=== PATIENT | male | born 1950 | race African-American/Black ===

== ENCOUNTER 2018-09-02 00:33 | Emergency (ER) | payer OTHER ==
--- NOTE | 2018-09-02 01:02 | PDOC ---
History of Present Illness - General Stated Complaint: BLEEDING FROM PENIS Time Seen by Provider: 09/02/18 00:47 History Source: Patient, Old Records Exam Limitations: No Limitations - History of Present Illness Initial Comments: 09/02/18 01:01 HISTORY OF PRESENT ILLNESS: This is a 67-year-old man past medical history of HCV, alcohol abuse, cirrhosis, BPH status post unknown urologic procedure who BIBEMS for urinary retention and penile bleeding. Patient states that he had his postprocedure catheter removed on Tuesday is been experiencing hematuria with clots since that time. Patient states earlier today he had urinary urgency but was unable to micturate. Patient states she would have to sit down to void and only passed small amount of bloody urine. Patient began to express suprapubic pressure and activated EMS for evaluation. Upon arrival in the emergency department patient had a large void. Currently patient denies all complaints. No recent travel or sick contacts. PAST MEDICAL HISTORY: see HPI SURGICAL HISTORY: see HPI ALLERGIES: No known drug allergies REVIEW OF SYSTEMS General/Constitutional: Denies fever or chills. Denies weakness, weight change. HEENT: Denies change in vision. Denies ear pain or discharge. Denies sore throat. Cardiovascular: Denies chest pain or shortness of breath. Respiratory: Denies cough, wheezing, or hemoptysis. Gastrointestinal: Denies nausea, vomiting, diarrhea or constipation. Denies rectal bleeding. Genitourinary: see hpi Musculoskeletal: Denies joint or muscle swelling or pain. Denies neck or back pain. Skin and breasts: Denies rash or easy bruising. Neurologic: Denies headache, vertigo, loss of consciousness, or loss of sensation. Psychiatric: Denies depression or anxiety. Endocrine: Denies increased thirst. Denies abnormal weight change. Hematologic/Lymphatic: Denies anemia, easy bleeding, or history of blood clots. Allergic/Immunologic: Denies hives or skin allergy. Denies latex allergy. PHYSICAL EXAM General Appearance: Well-appearing, appropriately dressed. No apparent distress , no intoxication. HEENT: EOMI, PERRLA, normal ENT inspection, normal voice, TMs normal, pharynx normal. No conjunctival pallor. No photophobia, scleral icterus. Neck: Supple. Trachea midline. No tenderness, rigidity, carotid bruit, stridor , lymphadenopathy, or thyromegaly. Respiratory/Chest: Lungs CTAB. No shortness of breath, chest tenderness, respiratory distress, accessory muscle use. No crackles, rales, rhonchi, stridor , wheezing, dullness Cardiovascular: RRR. S1, S2. No JVD, murmur, bradycardia, tachycardia. Vascular Pulses: Dorsalis-Pedis (R): 2+, Dorsalis-Pedis (L): 2+ Gastrointestinal/Abdominal: Normal bowel sounds. Abdomen soft, non-distended. No tenderness or rebound tenderness. No organomegaly, pulsatile mass, guarding, hernia, hepatomegaly, splenomegaly. Lymphatic: No adenopathy, tenderness. Musculoskeletal/Extremities: Normal inspection. FROM of all extremities, normal capillary refill. Pelvis Stable. No CVA tenderness. No tenderness to extremities, pedal edema, swelling, erythema or deformity. Integumentary: Appropriate color, dry, warm. No cyanosis, erythema, jaundice or rash Neurologic: activities assistant II-XII intact. Fully oriented, alert. Appropriate mood/affect. Motor strength 5/5. No appreciable EOM palsy, facial droop or sensory deficit. Past History - Past Medical History Allergies/Adverse Reactions: Allergies Allergy/AdvReac Type Severity Reaction Status Date / Time No Known Allergies Allergy Verified 09/02/18 02:15 Home Medications: Ambulatory Orders Unobtainable 06/18/18 COPD: No Thyroid Disease: No - Surgical History Cardiac Surgery: No Gastric Stapling: No - Immunization History Immunization Up to Date: No - Suicide/Smoking/Psychosocial Hx Smoking History: Never smoked Have you smoked in the past 12 months: No Hx Alcohol Use: No Drug/Substance Use Hx: No Substance Use Type: Alcohol ED Treatment Course - LABORATORY CBC & Chemistry Diagram: 09/02/18 01:14 09/02/18 01:14 Medical Decision Making - Medical Decision Making 09/02/18 01:06 A/P: 67-year-old male with a resolved urinary retention Abdomen soft nontender nondistended No palpable bladder present Circumcised penis. No blood noted at meatus Testicular exam is within normal limits Patient states he had a large volume void arrival to the emergency department but was not witnessed and no sample was collected. All patient is asymptomatic reports having blood clots and lots of blood over the past week. As a result I will collect CBC, BMP and urinalysis. 09/02/18 03:[address] Nunn for consult 09/02/18 04:[address] Nunn. Patient extremely procedure performed and most likely this is a scab that broke off causing the clot and urinary symptoms. As patient has been able to fully empty his bladder twice since arrival as recommended discharge home to follow-up in office as an outpatient next week. Results and consult discussed with patient verbalizes understanding of discharge instructions. Strict return precautions were provided and patient understands come back to the hospital immediately if he is unable to fully empty his bladder. *DC/Admit/Observation/Transfer Diagnosis at time of Disposition: Gross hematuria - Discharge Dispostion Disposition: HOME Condition at time of disposition: Fair Decision to Admit order: No - Referrals Referrals: Daniel Rodriguez MD [Primary Care Provider] - Daquan Valle MD [Staff Physician] - - Patient Instructions Additional Instructions: Make an appointment with your urologist Dr. Nunn next week for reevaluation. Return to emergency department for inability to fully empty her bladder, severe pain, burning when he urinates or any other concerns - Post Discharge Activity
[2018-09-02 01:20] LABS: HEMATOCRIT 36.3 % (35.4-49); HEMOGLOBIN 12.2 GM/dL (11.7-16.9); LYMPH % 19.4 % (8-40); MCH 32.8 pg (25.7-33.7); MCHC 33.5 g/dl (32.0-35.9); MEAN CELL VOLUME 97.8 fl (80-96); MEAN PLT VOLUME 8.2 fl (7.5-11.1); MONO % 12.3 % (3.8-10.2); NEUT % 66.3 % (42.8-82.8); PLATELET COUNT 233 K/MM3 (134-434); RBC 3.71 M/mm3 (4.00-5.60); RDW 14.4 % (11.9-15.9); WHITE BLOOD COUNT 7.8 K/mm3 (4.0-10.0)
[2018-09-02 01:42] LABS: ANION GAP 7 MMOL/L (8-16); BLOOD UREA NITROGEN 8 mg/dL (7-18); CALCIUM 8.9 mg/dL (8.5-10.1); CHLORIDE 104 mmol/L (98-107); CO2 26 mmol/L (21-32); CREATININE 0.8 mg/dL (0.55-1.3); GLUCOSE,RANDOM 123 mg/dL (74-106); POTASSIUM 3.6 mmol/L (3.5-5.1); SODIUM 137 mmol/L (136-145)
[2018-09-02 02:16] VITALS: BMI 24.3
[2018-09-02 03:20] LABS: URINE APPEARANCE SLCLOUDY; URINE BILIRUBIN NEGATIVE (<2.0 mg/dL); URINE COLOR RED; URINE GLUCOSE (UA) 1+ (NEGATIVE); URINE KETONE NEGATIVE (NEGATIVE); URINE LEUK ESTERASE NEGATIVE (NEGATIVE); URINE NITRITE NEGATIVE (NEGATIVE); URINE PROTEIN 2+ (NEGATIVE); URINE UROBILINOGEN NEGATIVE mg/dL (0.2-1.0)
[2018-09-02 03:25] LABS: URINE MUCUS RARE
[2018-09-02 04:22] VITALS: BP 133/71; PULSE 88; TEMP 98.2
== END 2018-09-02 04:23 | disposition home or self-care (01) ==
LOC: JER 00:33
DX: R31.0 Gross hematuria (principal); N40.0 Benign prostatic hyperplasia without lower urinary tract symptoms; Z98.890 Other specified postprocedural states; B18.2 Chronic viral hepatitis C; K74.60 Unspecified cirrhosis of liver; F10.10 Alcohol abuse, uncomplicated
CPT/HCPCS: 36415; 80048; 81003; 81015; 85025; 99281-25